=== PATIENT | female | born 1990 | race Two or more races ===

== ENCOUNTER 2024-02-15 06:52 | Day surgery (SDC) | payer OTHER ==
[2024-02-09 09:26] LABS: HEMATOCRIT 40.2 % (36.0-45.00); HEMOGLOBIN 13.7 g/dL (12.0-15.00); MEAN CELL VOLUME 91.2 fL (80.00-100.00); PLATELET COUNT 249 K/uL (150-450); RED BLOOD COUNT 4.41 M/uL (4.00-6.00); RED CELL DISTRIBUTION WIDTH 13.8 % (11.5-14.5)
[2024-02-09 09:29] LABS: PH,URINE 7.5 (5.0-8.0); URINE APPEARANCE Clear; URINE BILIRRUBIN Negative (NEGATIVE); URINE BLOOD Negative; URINE COLOR Yellow; URINE GLUCOSE Negative (NEGATIVE); URINE KETONE Negative (NEGATIVE); URINE LEUKOCYTE Trace; URINE NITRATE Negative; URINE PROTEIN Negative (NEGATIVE)
[2024-02-09 09:30] LABS: URINE BACTERIA 589.6 uL (0.0-1933); URINE EPITHELIAL CELLS 42.6 uL (0.0-38.8); URINE RBC 44.1 uL (0.0-20.8); URINE WBC 14.6 uL (0.0-23.2)
[2024-02-09 10:20] LABS: INR 1.05; PARTIAL THROMBOPLASTIN TIME 26.6 SECONDS (22.0-34.0); PROTHROMBIN TIME 11.4 SECONDS (9.0-11.5)
[2024-02-09 10:34] LABS: BILIRUBIN TOTAL 0.66 mg/dL (0.3-1.2); CALCIUM 9.9 mg/dL (8.5-10.1); CREATININE SERUM 0.69 mg/dL (0.55-1.02); GFR 98.59; GLOBULINA 3.9 G/DL (2.4-3.5); POTASSIUM 4.68 mEq/L (3.5-5.1); TOTAL PROTEIN 7.9 gm/dL (6.4-8.2); TSH 1.8 uIU/mL (0.358-3.74)
[2024-02-15] MEDS ORDERED: CEFOXITIN SODIUM 2,000 MG VIAL IV ONE (09:12)
[2024-02-15] MEDS ORDERED: POVIDONE-IODINE 118 ML BOTT TOP ONE (10:27)
[2024-02-15] MEDS ORDERED: MORGIDOX100 MG PO (11:28)
[2024-02-15] MEDS ORDERED: NAPR500T14 PO (11:28)
[2024-02-15] MEDS ORDERED: PROMETHAZINE HCL 50 MG/ML AMPUL IM ONE (11:30)
[2024-02-15] MEDS ORDERED: MORPHINE SULFATE 4 MG/ML VIAL IV PRN (11:30)
== END 2024-02-15 14:30 | disposition home or self-care (01) ==
LOC: CIR.AMB 06:52
PROVIDERS: ATTEND Obstetrics & Gynecology
DX: D25.0 Submucous leiomyoma of uterus (principal); N84.0 Polyp of corpus uteri; N92.0 Excessive and frequent menstruation with regular cycle